=== PATIENT | male | born 1995 | race Caucasian/White ===

== ENCOUNTER 2019-08-16 11:49 | Emergency (ER) | payer BC, OTHER ==
--- NOTE | 2019-08-16 12:09 | EDM.PDOC ---
ED HPI GENERAL MEDICAL PROBLEM - General Chief Complaint: Laceration Stated Complaint: STICHES Time Seen by Provider: 08/16/19 12:09 Source of Information: Reports: Patient History Limitations: Reports: No Limitations - History of Present Illness INITIAL COMMENTS - FREE TEXT/NARRATIVE: Using an Geo wrench on a drill, caught his glove twisting causing a tear to the palmar surface of the left hand. T dap given last fall with the of his child. Denies any major compromise but notes gaping tissue with irregular margins. No other injury or complaint. 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 ED EXAM, GENERAL - Physical Exam Exam: See Below Free Text/Narrative:: There are 4 lacerations to the palmar surface one to the proximal phalanx, one to the medial phalanx of the third digit, and two to the palm of the third metacarpal region. They are clean in appearance with no debris. Capillary refill is intact distally. Sensation is intact distally. He is able to flex and extend with no difficulty, being able to make a closed fist. Exam Limited By: No Limitations General Appearance: Alert, WD/WN, No Apparent Distress Ears: Normal External Exam, Normal Canal, Hearing Grossly Normal, Normal TMs Nose: Normal Inspection Throat/Mouth: Normal Inspection, Normal Lips Head: Atraumatic, Normocephalic Neck: Normal Inspection, Supple, Non-Tender, Full Range of Motion Respiratory/Chest: No Respiratory Distress, No Accessory Muscle Use, Chest Non- Tender Cardiovascular: Normal Peripheral Pulses, Regular Rate, Rhythm (Male) Exam: Deferred Rectal (Males) Exam: Deferred Back Exam: Full Range of Motion Extremities: Normal Inspection (To the right upper and lower extremities. Upper extremity shows 3 areas of concern. The palmar surface of the palm has to abrasion tears and 1 to the palmar surface of the proximal and medial flanks.) Neurological: Alert, Oriented, CN II-XII Intact, Normal Cognition, Normal Gait, Normal Reflexes, No Motor/Sensory Deficits Psychiatric: Normal Affect, Normal Mood Skin Exam: Warm, Dry, Intact, Normal Color, No Rash Lymphatic: No Adenopathy ED GENERAL MEDICAL PROCEDURES - Laceration/Wound Repair Left Hand Lac/wound length in cm: 0.5 (0.5, 0.5, 1.0, 1.5 cm) Appearance: Irregular, Clean Distal NVT: Neuro & Vascular Intact Anesthetic Type: Local Local Anesthesia - Lidocaine (Xylocaine): 2% with EPI Local Anesthetic Volume: 5cc Skin Prep: Providone-Iodine (Betadine) Exploration/Debridement/Repair: Wound Explored, In a Bloodless Field, Explored to Base, Minimal Debridement Closed with: Sutures Suture Size: 4-0 # of Sutures: 5 (5, 4, 3, &5) Suture Type: Nylon, Interrupted Drain Placement: No Sterile Dressing Applied: Provider Tetanus Status Addressed: Yes Course - Vital Signs Last Recorded V/S: Last Vital Signs Temp 36.1 C 08/16/19 12:27 Pulse 66 08/16/19 12:27 Resp 16 08/16/19 12:27 BP 137/70 08/16/19 12:27 Pulse Ox 96 08/16/19 12:27 - Orders/Labs/Meds Meds: Medications Discontinued Medications Generic Name Dose Route Start Last Admin Trade Name Freq PRN Reason Stop Dose Admin Lidocaine/Epinephrine 5 ml 08/16/19 12:12 08/16/19 13:30 Xylocaine-Mpf 2%-Epi 1:200,000 INFILT 08/16/19 12:13 5 ml ONETIME ONE Administration Neomycin/Polymyxin/Bacitracin Confirm 08/16/19 13:14 Triple Antibiotic Oint Administered 08/16/19 13:15 Dose 1 each .ROUTE .STK-MED ONE Neomycin/Polymyxin/Bacitracin 0.5 gm 08/16/19 13:59 08/16/19 13:30 Triple Antibiotic Oint TOP 08/16/19 14:00 1 applic ONETIME ONE Administration Departure - Departure Time of Disposition: 13:33 Disposition: Home, Self-Care 01 Condition: Good Clinical Impression: Laceration of hand Qualifiers: Encounter type: initial encounter Foreign body presence: without foreign body Laterality: left Qualified Code(s): S61.412A - Laceration without foreign body of left hand, initial encounter - Discharge Information *PRESCRIPTION DRUG MONITORING PROGRAM REVIEWED*: Not Applicable *COPY OF PRESCRIPTION DRUG MONITORING REPORT IN PATIENT VANIA: Not Applicable Prescriptions: Amoxicillin/Potassium Clav [Amox Tr-K Clv 875-125 mg Tab] 1 each PO BID 7 Days # 14 tablet Referrals: Leonela Kirkland MD [Primary Care Provider] - Forms: ED Department Discharge Additional Instructions: Keep clean and dry as possible. Keep this dressing in place until tomorrow, you may remove it band and wash. Bacitracin or triple antibiotic should be applied with a dressing when being in a dirty environment. You may use a rubber glove to protect this when you can't remain clean. No swimming, soaking, or dishwashing until sutures are removed. Suture removal should be in 10 days at the clinic of your choice. Due to the nature of the tearing of the tissue versus being a clean cut we are placing you on antibiotic for 7 days. Sure you eat healthy and maintain good fluid intake. Eating yogurt daily will help offset any stomach upset from the antibiotic. Sepsis Event Note - Focused Exam Vital Signs: Vital Signs Temp Pulse Resp BP Pulse Ox 08/16/19 12:27 36.1 C 66 16 137/70 96 Date Exam was Performed: 08/16/19 Time Exam was Performed: 15:25 - Problem List & Annotations (1) Laceration of hand SNOMED Code(s): 822963425 Code(s): S61.419A - LACERATION WITHOUT FOREIGN BODY OF UNSP HAND, INIT ENCNTR Status: Acute Priority: High Qualifiers: Encounter type: initial encounter Foreign body presence: without foreign body Laterality: left Qualified Code(s): S61.412A - Laceration without foreign body of left hand, initial encounter (2) Skin tear of hand without complication SNOMED Code(s): 679605500, 802373812, [id number] Code(s): S61.419A - LACERATION WITHOUT FOREIGN BODY OF UNSP HAND, INIT ENCNTR Status: Acute Qualifiers: Encounter type: initial encounter Laterality: right Qualified Code(s): S61.411A - Laceration without foreign body of right hand, initial encounter (3) Sutured skin wound SNOMED Code(s): 191149786, 543699365 Code(s): T14.8XXA - OTHER INJURY OF UNSPECIFIED BODY REGION, INITIAL ENCOUNTER Status: Acute - Problem List Review Problem List Initiated/Reviewed/Updated: Yes - Assessment/Plan Plan: Keep clean and dry as possible. Keep this dressing in place until tomorrow, you may remove it band and wash. Bacitracin or triple antibiotic should be applied with a dressing when being in a dirty environment. You may use a rubber glove to protect this when you can't remain clean. No swimming, soaking, or dishwashing until sutures are removed. Suture removal should be in 10 days at the clinic of your choice. Due to the nature of the tearing of the tissue versus being a clean cut we are placing you on antibiotic for 7 days. Sure you eat healthy and maintain good fluid intake. Eating yogurt daily will help offset any stomach upset from the antibiotic.
[2019-08-16] MEDS: Lidocaine 2% with EPINEPHrine 1:200,000 20 ML SDV INFILT ONE (13:30)
[2019-08-16] MEDS: Bacitracin/Neomycin/Polymyxin B Oint 28.4 GM Tube TOP ONE (13:30)
[2019-08-17] MEDS: Bacitracin/Neomycin/Polymyxin B Oint 0.9 GM U/D Packet ONE (13:25)
== END 2019-08-16 13:45 | disposition home or self-care (01) ==
LOC: KA.ED 11:49
DX: S61.412A Laceration without foreign body of left hand, initial encounter (principal); Z23 Encounter for immunization; W26.8XXA Contact with other sharp object(s), not elsewhere classified, initial encounter
CPT/HCPCS: 12002; 99282